=== PATIENT | female | born 1980 | race Caucasian/White ===

== ENCOUNTER 2018-06-23 13:47 | Emergency (ER) | payer MEDICARE, MEDICAID ==
[~2018-06-23] VITALS: Ht 157.5 cm; Wt 101.0 kg
[2018-06-23] MEDS ORDERED: DIVA500T9 PO ×2 (14:32)
[2018-06-23] MEDS ORDERED: ILOP8TAB2 OP (14:32)
[2018-06-23] MEDS ORDERED: ALBU18HF2 INH (14:35)
[2018-06-23 14:55] LABS: CLARITY,URINE CLOUDY (Clear); GLUCOSE, URINE NEGATIVE (Neg); KETONES,URINE 15 mg/dl (Neg); LEUKOCYTE ESTERASE ,URINE NEGATIVE (Neg); NITRITES, URINE POSITIVE (Neg); OCCULT BLOOD,URINE TRACE-INTACT (Neg); PROTEIN,URINE TRACE mg/dl (Neg)
[2018-06-23] MEDS ORDERED: albuterol 2.5 MG/3 ML nebule NEB PRN (15:00)
[2018-06-23 15:01] LABS: UA COLLECTION TYPE CLN CATCH MIDSTREAM; URINE HCG NEGATIVE (NEG)
[2018-06-23 15:03] LABS: COLOR,URINE DARK YELLOW (Yellow)
[2018-06-23 15:05] LABS: BACTERIA,URINE 4+ /HPF (Neg); MUCUS STRANDS MANY /LPF (Neg); RBC,URINE 0-2 /HPF (0-2); SQUAMOUS EPITHELIAL CELL,UR MANY /LPF (FEW)
[2018-06-23 15:20] LABS: BASOPHILS # (AUTO) 0.1 X10'3 (0-0.2); BASOPHILS % (AUTO) 0.6 % (0-1); EOSINOPHILS % (AUTO) 0.5 % (0-6); HEMATOCRIT 37.9 % (35.0-45.0); HEMOGLOBIN 12.8 g/dl (12.0-16.0); LYMPHOCYTES # (AUTO) 2.2 X10'3 (1.1-4.8); LYMPHOCYTES % (AUTO) 21.6 % (21-51); MEAN CORPUSCULAR HEMOGLOBIN 31.6 PG (27.0-31.0); MEAN CORPUSCULAR HGB CONC 33.9 % (33.0-36.5); MEAN CORPUSCULAR VOLUME 93.3 FL (78-98); MONOCYTES # (AUTO) 0.8 X10'3 (0-0.9); NEUTROPHILS % (AUTO) 69.3 % (42-75); PLATELET COUNT 262 X10'3 (140-440); RED BLOOD COUNT 4.06 X10'6 (4.20-5.60); RED CELL DISTRIBUTION WIDTH 13.6 % (11.5-14.5); WHITE BLOOD COUNT 10.1 X10'3 (4.5-11.0)
[2018-06-23 15:38] LABS: ALANINE AMINOTRANSFERASE 23 U/L (12-78); ALBUMIN 3.4 G/DL (3.4-5.0); ALBUMIN/GLOBULIN RATIO 0.9 (1.1-1.5); ALKALINE PHOSPHATASE 105 IU/L (46-116); ANION GAP 8 (8-16); ASPARTATE AMINO TRANSFERASE 18 U/L (10-37); BILIRUBIN,TOTAL 0.4 MG/DL (0.1-1.0); BLOOD UREA NITROGEN 8 MG/DL (7-18); BUN/CREATININE RATIO 8.8 (6.6-38.0); CALCIUM 8.8 MG/DL (8.5-10.1); CHLORIDE 106 MMOL/L (99-107); CREATININE 0.91 MG/DL (0.40-0.90); GLUCOSE 99 MG/DL (70-104); POTASSIUM 3.3 MMOL/L (3.5-5.1); SODIUM 143 MMOL/L (135-145); TOTAL CARBON DIOXIDE 29.3 MMOL/L (24-32); TOTAL PROTEIN 7.2 G/DL (6.4-8.2); eGFR 70 ML/MIN
[2018-06-23 15:48] LABS: ETHANOL < 0.010 GM/DL (0.0-0.010)
[2018-06-23] MEDS ORDERED: olanzapine 10mg tablet PO SCH (16:15)
[2018-06-23] MEDS ORDERED: FANAPT 8 MG PO SCH (21:00)
[2018-06-23] MEDS ORDERED: divalproex sod 250mg ER (24-hour) tablet PO SCH (21:00)
[2018-06-23] MEDS ORDERED: potassium Cl 20 mEq SR tablet PO ONE (23:40)
[2018-06-23 23:53] VITALS: BP 105/75
[2018-06-24] MEDS ORDERED: divalproex sod 250mg ER (24-hour) tablet PO SCH (08:00)
== END 2018-06-24 00:52 ==
LOC: ER 13:48
DX: F20.9 Schizophrenia, unspecified (principal); J45.909 Unspecified asthma, uncomplicated; F32.9 Major depressive disorder, single episode, unspecified; F41.9 Anxiety disorder, unspecified; Z90.49 Acquired absence of other specified parts of digestive tract; Z87.891 Personal history of nicotine dependence; Z88.8 Allergy status to other drugs, medicaments and biological substances; Z79.899 Other long term (current) drug therapy
CPT/HCPCS: 36415; 80053; 80320; 81001; 81025; 84443; 85025; 99285; J3490

== ENCOUNTER 2018-06-23 23:20 | Inpatient (IN) | payer MEDICARE, MEDICAID ==
[~2018-06-23] VITALS: Ht 157.5 cm; Wt 110.0 kg
[~2018-06-23 23:20] MED LIST: ALBU18HF2 INH; BENZ1TAB7 PO; DIVA500T9 PO; FURO20TA4 PO; ILOP8TAB2 OP; OLAN2.5T3 PO; UNABLE TO OBTAIN
[2018-06-24] MEDS ORDERED: acetaminophen 325mg tablet PO PRN ×4 (00:45→08:30)
[2018-06-24] MEDS ORDERED: magnesium hydroxide 30ml (MOM) UD suspension PO PRN ×2 (00:45→08:30)
[2018-06-24] MEDS ORDERED: mag hydrox/Alum hydrox/simeth 30ml oral suspension PO PRN ×2 (00:45→08:30)
[2018-06-24] MEDS ORDERED: albuterol 2.5 MG/3 ML nebule NEB PRN (01:00)
[2018-06-24 01:23] VITALS: BP 120/70
[2018-06-24] MEDS ORDERED: LORazepam 1 MG tablet PO ONE ×2 (03:05→03:45)
[2018-06-24 07:53] LABS: CHOL/HDL RATIO 2.7 (0.00-4.99); CHOLESTEROL 128 MG/DL (0-200); HDL CHOLESTEROL 48 MG/DL (35-60); LDL CHOLESTEROL 65 MG/DL (50-100); TRIGLYCERIDES 63 MG/DL (20-135)
[2018-06-24 08:00] VITALS: BP 139/82
[2018-06-24] MEDS: divalproex sod 250mg ER (24-hour) tablet PO SCH ×2 (08:07→20:43)
[2018-06-24] MEDS: lisinopril 20mg tablet PO SCH (08:30)
[2018-06-24] MEDS ORDERED: HYDROcodone/acetaminophen 5mg/325mg tablet PO PRN (08:30)
[2018-06-24] MEDS ORDERED: HYDROcodone/acetaminophen 10/325mg tab PO PRN (08:30)
[2018-06-24] MEDS ORDERED: bisacodyl 10mg suppository rectal RC PRN (08:30)
[2018-06-24] MEDS ORDERED: metoclopramide 5 mg/ml inj IV PRN (08:30)
[2018-06-24] MEDS ORDERED: ondansetron/PF 4mg/2ml inj IV PRN (08:30)
[2018-06-24] MEDS ORDERED: acetaminophen 650mg rectal suppository RC PRN (08:30)
[2018-06-24] MEDS ORDERED: potassium Cl 20 mEq SR tablet PO PRN ×2 (08:30)
[2018-06-24] MEDS ORDERED: potassium Cl 40MEQ/NS 500ml 500 ML IV PRN ×2 (08:30)
[2018-06-24] MEDS: K and/or MAG REPLACEMENT MC SCH (08:30)
[2018-06-24] MEDS: HYDROchlorothiazide 25mg tablet PO SCH (08:30)
[2018-06-24 08:56] LABS: ALANINE AMINOTRANSFERASE 21 U/L (12-78); ALBUMIN 2.7 G/DL (3.4-5.0); ALBUMIN/GLOBULIN RATIO 0.8 (1.1-1.5); ALKALINE PHOSPHATASE 87 IU/L (46-116); ANION GAP 5 (8-16); ASPARTATE AMINO TRANSFERASE 16 U/L (10-37); BILIRUBIN,TOTAL 0.3 MG/DL (0.1-1.0); BLOOD UREA NITROGEN 8 MG/DL (7-18); CALCIUM 8.2 MG/DL (8.5-10.1); CHLORIDE 108 MMOL/L (99-107); CREATINE KINASE 73 U/L (26-192); CREATININE 0.73 MG/DL (0.40-0.90); GLUCOSE 92 MG/DL (70-104); LIPASE 90 U/L (73-393); MAGNESIUM 1.8 MG/DL (1.5-2.4); POTASSIUM 3.6 MMOL/L (3.5-5.1); SODIUM 141 MMOL/L (135-145); eGFR 90 ML/MIN
[2018-06-24 09:20] LABS: VALPROATE 72 UG/ML (50-100)
[2018-06-24] MEDS: rivaroxaban 20mg tablet PO SCH (12:40)
[2018-06-24 14:03] LABS: PARTIAL THROMBOPLASTIN TIME 28 SECONDS (22-32); PROTHROMBIN TIME 10.6 SECONDS (9.0-12.0)
[2018-06-24] MEDS ORDERED: heparin, porcine 5000 units/ml vial SQ SCH (16:00)
[2018-06-24] MEDS: miconazole nitrate cream 57gm TP SCH (18:05)
[2018-06-24] MEDS: nitrofuran/nitrofuran macrocrysal 100 MG capsule PO SCH (18:11)
[2018-06-24 19:58] VITALS: BP 134/81
[2018-06-24] MEDS: LORazepam 1 MG tablet PO SCH (20:43)
[2018-06-24] MEDS: haloperidol 5mg tablet PO SCH (20:44)
[2018-06-24] MEDS: docusate sod 100mg capsule PO SCH (20:44)
[2018-06-24] MEDS: benztropine 1mg tablet PO SCH (20:44)
[2018-06-24] MEDS ORDERED: temazepam 15mg capsule PO PRN (21:00)
[2018-06-25 08:00] VITALS: BP 134/78
[2018-06-25] MEDS: miconazole nitrate cream 57gm TP SCH (08:00)
[2018-06-25] MEDS: nicotine 21mg patch - 24 hr TD SCH (08:00)
[2018-06-25] MEDS: K and/or MAG REPLACEMENT MC SCH (08:00)
[2018-06-25] MEDS: benztropine 1mg tablet PO SCH ×2 (09:35→20:27)
[2018-06-25] MEDS: HYDROchlorothiazide 25mg tablet PO SCH (09:35)
[2018-06-25] MEDS: docusate sod 100mg capsule PO SCH ×2 (09:35→20:27)
[2018-06-25] MEDS: nitrofuran/nitrofuran macrocrysal 100 MG capsule PO SCH ×2 (09:36→17:33)
[2018-06-25] MEDS: rivaroxaban 20mg tablet PO SCH (09:36)
[2018-06-25] MEDS: haloperidol 5mg tablet PO SCH ×2 (09:36→20:27)
[2018-06-25] MEDS: lisinopril 20mg tablet PO SCH (09:37)
[2018-06-25] MEDS: divalproex sod 250mg ER (24-hour) tablet PO SCH ×2 (09:37→20:27)
[2018-06-25 20:07] VITALS: BP 105/54
[2018-06-25] MEDS: LORazepam 1 MG tablet PO SCH (20:27)
[2018-06-26 08:00] VITALS: BP 105/72
[2018-06-26] MEDS: lisinopril 20mg tablet PO SCH (08:32)
[2018-06-26] MEDS: benztropine 1mg tablet PO SCH ×2 (08:32→21:06)
[2018-06-26] MEDS: LORazepam 1 MG tablet PO PRN (08:33)
[2018-06-26] MEDS: rivaroxaban 20mg tablet PO SCH (08:33)
[2018-06-26] MEDS: docusate sod 100mg capsule PO SCH ×2 (08:33→21:06)
[2018-06-26] MEDS: haloperidol 5mg tablet PO PRN (08:34)
[2018-06-26] MEDS: haloperidol 5mg tablet PO SCH ×2 (08:34→21:06)
[2018-06-26] MEDS: HYDROchlorothiazide 25mg tablet PO SCH (08:34)
[2018-06-26] MEDS: divalproex sod 250mg ER (24-hour) tablet PO SCH ×2 (08:34→21:06)
[2018-06-26] MEDS: nicotine 21mg patch - 24 hr TD SCH (08:35)
[2018-06-26] MEDS: K and/or MAG REPLACEMENT MC SCH (08:55)
[2018-06-26] MEDS: nitrofuran/nitrofuran macrocrysal 100 MG capsule PO SCH ×2 (09:02→17:55)
[2018-06-26] MEDS: miconazole nitrate cream 57gm TP SCH (09:02)
[2018-06-26 19:59] VITALS: BP 115/58
[2018-06-26] MEDS: LORazepam 1 MG tablet PO SCH (21:06)
[2018-06-27] MEDS: divalproex sod 250mg ER (24-hour) tablet PO SCH ×2 (07:51→20:25)
[2018-06-27] MEDS: nitrofuran/nitrofuran macrocrysal 100 MG capsule PO SCH ×2 (07:51→17:38)
[2018-06-27] MEDS: miconazole nitrate cream 57gm TP SCH (07:51)
[2018-06-27] MEDS: docusate sod 100mg capsule PO SCH ×2 (07:51→20:24)
[2018-06-27] MEDS: rivaroxaban 20mg tablet PO SCH (07:51)
[2018-06-27] MEDS: HYDROchlorothiazide 25mg tablet PO SCH (07:51)
[2018-06-27] MEDS: benztropine 1mg tablet PO SCH ×2 (07:52→20:24)
[2018-06-27] MEDS: lisinopril 20mg tablet PO SCH (07:52)
[2018-06-27] MEDS: haloperidol 5mg tablet PO SCH ×2 (07:52→20:25)
[2018-06-27] MEDS: nicotine 21mg patch - 24 hr TD SCH (08:00)
[2018-06-27 08:51] VITALS: BP 131/67
[2018-06-27 19:24] VITALS: BP 116/90
[2018-06-27] MEDS: FANAPT 8 MG PO SCH (20:25)
[2018-06-27] MEDS: LORazepam 1 MG tablet PO SCH (20:25)
[2018-06-28] MEDS: nicotine 21mg patch - 24 hr TD SCH (08:00)
[2018-06-28] MEDS: haloperidol 5mg tablet PO SCH ×2 (08:33→20:39)
[2018-06-28] MEDS: nitrofuran/nitrofuran macrocrysal 100 MG capsule PO SCH ×2 (08:34→17:46)
[2018-06-28] MEDS: divalproex sod 250mg ER (24-hour) tablet PO SCH ×2 (08:34→20:41)
[2018-06-28] MEDS: docusate sod 100mg capsule PO SCH ×2 (08:34→20:39)
[2018-06-28] MEDS: benztropine 1mg tablet PO SCH ×2 (08:34→20:39)
[2018-06-28] MEDS: HYDROchlorothiazide 25mg tablet PO SCH (08:35)
[2018-06-28] MEDS: lisinopril 20mg tablet PO SCH (08:35)
[2018-06-28 08:36] VITALS: BP 121/81
[2018-06-28] MEDS: miconazole nitrate cream 57gm TP SCH (08:36)
[2018-06-28] MEDS: rivaroxaban 20mg tablet PO SCH (08:36)
[2018-06-28 20:00] VITALS: BP 127/70
[2018-06-28] MEDS: LORazepam 1 MG tablet PO SCH (20:40)
[2018-06-28] MEDS: FANAPT 8 MG PO SCH (20:41)
[2018-06-29] MEDS: docusate sod 100mg capsule PO SCH ×2 (07:58→20:29)
[2018-06-29] MEDS: nitrofuran/nitrofuran macrocrysal 100 MG capsule PO SCH ×2 (07:58→17:58)
[2018-06-29] MEDS: lisinopril 20mg tablet PO SCH (07:58)
[2018-06-29] MEDS: benztropine 1mg tablet PO SCH ×2 (07:58→20:29)
[2018-06-29] MEDS: rivaroxaban 20mg tablet PO SCH (07:58)
[2018-06-29] MEDS: HYDROchlorothiazide 25mg tablet PO SCH (07:58)
[2018-06-29] MEDS: haloperidol 5mg tablet PO SCH ×2 (07:59→20:29)
[2018-06-29] MEDS: divalproex sod 250mg ER (24-hour) tablet PO SCH ×2 (07:59→20:30)
[2018-06-29] MEDS: miconazole nitrate cream 57gm TP SCH (08:00)
[2018-06-29] MEDS: nicotine 21mg patch - 24 hr TD SCH (08:00)
[2018-06-29 08:35] VITALS: BP 176/100
[2018-06-29 19:00] VITALS: BP 118/71
[2018-06-29] MEDS: LORazepam 1 MG tablet PO SCH (20:29)
[2018-06-29] MEDS: FANAPT 8 MG PO SCH (20:31)
[2018-06-30 08:00] VITALS: BP 127/70
[2018-06-30] MEDS: miconazole nitrate cream 57gm TP SCH (08:00)
[2018-06-30] MEDS: nicotine 21mg patch - 24 hr TD SCH (08:00)
[2018-06-30] MEDS: nitrofuran/nitrofuran macrocrysal 100 MG capsule PO SCH ×2 (08:20→17:48)
[2018-06-30] MEDS: docusate sod 100mg capsule PO SCH ×2 (08:20→20:54)
[2018-06-30] MEDS: rivaroxaban 20mg tablet PO SCH (08:20)
[2018-06-30] MEDS: lisinopril 20mg tablet PO SCH (08:20)
[2018-06-30] MEDS: benztropine 1mg tablet PO SCH ×2 (08:21→20:53)
[2018-06-30] MEDS: divalproex sod 250mg ER (24-hour) tablet PO SCH ×2 (08:21→20:54)
[2018-06-30] MEDS: haloperidol 5mg tablet PO SCH ×2 (08:22→20:54)
[2018-06-30] MEDS: HYDROchlorothiazide 25mg tablet PO SCH (08:22)
[2018-06-30 20:00] VITALS: BP 104/53
[2018-06-30] MEDS: FANAPT 8 MG PO SCH (20:53)
[2018-06-30] MEDS: LORazepam 1 MG tablet PO SCH (20:54)
[2018-06-30] MEDS ORDERED: TYPE IN GENERIC & BRAND NAME OF PATIENT MED STRENGTH & FORM PO SCH (21:00)
[2018-07-01 08:00] VITALS: BP 98/49
[2018-07-01] MEDS: rivaroxaban 20mg tablet PO SCH ×2 (08:00→08:42)
[2018-07-01] MEDS: lisinopril 20mg tablet PO SCH (08:00)
[2018-07-01] MEDS: HYDROchlorothiazide 25mg tablet PO SCH (08:00)
[2018-07-01] MEDS: miconazole nitrate cream 57gm TP SCH (08:00)
[2018-07-01] MEDS: divalproex sod 250mg ER (24-hour) tablet PO SCH ×3 (08:00→20:57)
[2018-07-01] MEDS: haloperidol 5mg tablet PO SCH ×2 (08:41→20:57)
[2018-07-01] MEDS: docusate sod 100mg capsule PO SCH ×2 (08:42→20:57)
[2018-07-01] MEDS: benztropine 1mg tablet PO SCH ×2 (08:42→20:57)
[2018-07-01] MEDS: nitrofuran/nitrofuran macrocrysal 100 MG capsule PO SCH ×2 (08:42→20:58)
[2018-07-01 20:32] VITALS: BP 150/93
[2018-07-01] MEDS: LORazepam 1 MG tablet PO SCH (20:57)
[2018-07-01] MEDS: FANAPT 8 MG PO SCH (20:57)
[2018-07-02] MEDS: LORazepam 1 MG tablet PO PRN (01:26)
[2018-07-02] MEDS: haloperidol 5mg tablet PO PRN (01:26)
[2018-07-02 08:00] VITALS: BP 118/69
[2018-07-02] MEDS: miconazole nitrate cream 57gm TP SCH (08:00)
[2018-07-02] MEDS: lisinopril 10 MG tablet PO SCH ×2 (08:00→08:13)
[2018-07-02] MEDS: HYDROchlorothiazide 25mg tablet PO SCH (08:13)
[2018-07-02] MEDS: docusate sod 100mg capsule PO SCH ×2 (08:13→20:52)
[2018-07-02] MEDS: benztropine 1mg tablet PO SCH ×2 (08:13→20:52)
[2018-07-02] MEDS: haloperidol 5mg tablet PO SCH (08:13)
[2018-07-02] MEDS: rivaroxaban 20mg tablet PO SCH (08:14)
[2018-07-02] MEDS: nitrofuran/nitrofuran macrocrysal 100 MG capsule PO SCH ×2 (08:14→17:48)
[2018-07-02] MEDS: divalproex sod 250mg ER (24-hour) tablet PO SCH ×2 (08:14→20:52)
[2018-07-02 19:46] VITALS: BP 115/72
[2018-07-02] MEDS ORDERED: haloperidol 5mg tablet PO SCH (20:00)
[2018-07-02] MEDS: FANAPT 8 MG PO SCH (20:52)
[2018-07-02] MEDS: LORazepam 1 MG tablet PO SCH (20:52)
[2018-07-03 08:00] VITALS: BP 130/85
[2018-07-03] MEDS: lisinopril 10 MG tablet PO SCH ×2 (08:00→08:41)
[2018-07-03] MEDS ORDERED: TYPE IN GENERIC & BRAND NAME OF PATIENT MED STRENGTH & FORM PO SCH (08:00)
[2018-07-03] MEDS: miconazole nitrate cream 57gm TP SCH (08:00)
[2018-07-03] MEDS: divalproex sod 250mg ER (24-hour) tablet PO SCH (08:40)
[2018-07-03] MEDS: docusate sod 100mg capsule PO SCH (08:41)
[2018-07-03] MEDS: rivaroxaban 20mg tablet PO SCH (08:41)
[2018-07-03] MEDS: nitrofuran/nitrofuran macrocrysal 100 MG capsule PO SCH (08:41)
[2018-07-03] MEDS: HYDROchlorothiazide 25mg tablet PO SCH ×2 (08:41→09:01)
[2018-07-03] MEDS: benztropine 1mg tablet PO SCH (08:42)
[2018-07-03] MEDS ORDERED: HCTZ25T PO (09:48)
[2018-07-03] MEDS ORDERED: ILOP4TAB2 PO (09:48)
[2018-07-03] MEDS ORDERED: RIVA20TA PO (09:48)
[2018-07-03] MEDS ORDERED: DIVA-52 PO ×2 (09:48)
[2018-07-03] MEDS ORDERED: ATI1T PO (09:48)
[2018-07-03] MEDS ORDERED: LISI10TA4 PO (09:48)
[2018-07-03] MEDS ORDERED: ILOP8TAB2 PO (09:48)
== END 2018-07-03 13:00 | disposition home or self-care (01) | DRG 885 ==
LOC: ADULT MH 23:20
PROVIDERS: ADMIT Psychiatry & Neurology Psychiatry; ATTEND Psychiatry & Neurology Psychiatry
DX: F29 Unspecified psychosis not due to a substance or known physiological condition (principal); N39.0 Urinary tract infection, site not specified; Z68.41 Body mass index [BMI] 40.0-44.9, adult; F20.5 Residual schizophrenia; E87.6 Hypokalemia; E66.01 Morbid (severe) obesity due to excess calories; F84.0 Autistic disorder; I10 Essential (primary) hypertension; I48.91 Unspecified atrial fibrillation; J45.909 Unspecified asthma, uncomplicated; K21.9 Gastro-esophageal reflux disease without esophagitis; M41.9 Scoliosis, unspecified; Z79.899 Other long term (current) drug therapy; Z88.8 Allergy status to other drugs, medicaments and biological substances; Z72.0 Tobacco use
CPT/HCPCS: 36415; 80053; 80061; 80164; 82550; 83036; 83690; 83735; 85610; 85730; 87070; 93306; J1644

== ENCOUNTER → 2018-07-18 | Emergency (ER) | payer MEDICARE, MEDICAID ==
[~2018-07-18] VITALS: Ht 571.8 cm; Wt 135.0 kg
[~2018-07-18] MED LIST changes: +ATI1T PO; +DIVA-52 PO; +DIVA-76 PO; -DIVA500T9 PO; +FURO40TA4 PO; +HCTZ25T PO; +HYDR25TA4 PO; +ILOP2TAB2 PO; +ILOP4TAB2 PO; -ILOP8TAB2 OP; +ILOP8TAB2 PO; +LISI-600 PO; +LISI10TA4 PO; +LORA1TAB PO; +LORazepam 1 MG tablet PO ONE; +LORazepam 2 mg/ml vial IM ONE; +RIVA20TA PO; +albuterol 2.5 MG/3 ML nebule NEB PRN; +fluconazole 100mg tablet PO ONE; +haloperidol lactate 5mg/ml inj IM ONE
[2018-07-18 17:52] LABS: BASOPHILS # (AUTO) 0.1 X10'3 (0-0.2); EOSINOPHILS # (AUTO) 0.1 X10'3 (0-0.9); EOSINOPHILS % (AUTO) 0.5 % (0-6); HEMATOCRIT 42.9 % (35.0-45.0); HEMOGLOBIN 14.4 g/dl (12.0-16.0); LYMPHOCYTES # (AUTO) 3.1 X10'3 (1.1-4.8); LYMPHOCYTES % (AUTO) 26.4 % (21-51); MEAN CORPUSCULAR HEMOGLOBIN 31.8 PG (27.0-31.0); MEAN CORPUSCULAR HGB CONC 33.4 % (33.0-36.5); MEAN CORPUSCULAR VOLUME 95.1 FL (78-98); MEAN PLATELET VOLUME 9.8 FL (7.4-10.4); MONOCYTES # (AUTO) 0.6 X10'3 (0-0.9); MONOCYTES % (AUTO) 5.4 % (2-12); NEUTROPHILS # (AUTO) 7.7 X10'3 (1.8-7.7); NEUTROPHILS % (AUTO) 66.7 % (42-75); PLATELET COUNT 255 X10'3 (140-440); RED BLOOD COUNT 4.51 X10'6 (4.20-5.60); RED CELL DISTRIBUTION WIDTH 12.5 % (11.5-14.5); WHITE BLOOD COUNT 11.6 X10'3 (4.5-11.0)
[2018-07-18 17:59] LABS: ALANINE AMINOTRANSFERASE 19 U/L (12-78); ALBUMIN 3.7 G/DL (3.4-5.0); ALBUMIN/GLOBULIN RATIO 0.9 (1.1-1.5); ALKALINE PHOSPHATASE 125 IU/L (46-116); ANION GAP 12 (8-16); ASPARTATE AMINO TRANSFERASE 19 U/L (10-37); BILIRUBIN,TOTAL 0.6 MG/DL (0.1-1.0); BLOOD UREA NITROGEN 10 MG/DL (7-18); BUN/CREATININE RATIO 12.5 (6.6-38.0); CHLORIDE 103 MMOL/L (99-107); GLUCOSE 95 MG/DL (70-104); POTASSIUM 3.4 MMOL/L (3.5-5.1); SODIUM 138 MMOL/L (135-145); TOTAL PROTEIN 7.8 G/DL (6.4-8.2); eGFR 81 ML/MIN
[2018-07-18 18:07] LABS: ETHANOL < 0.010 GM/DL (0.0-0.010)
[2018-07-18 18:30] LABS: URINE HCG NEGATIVE (NEG)
[2018-07-18 18:33] LABS: CLARITY,URINE CLOUDY (Clear); COLOR,URINE YELLOW (Yellow); GLUCOSE, URINE NEGATIVE (Neg); KETONES,URINE NEGATIVE (Neg); LEUKOCYTE ESTERASE ,URINE NEGATIVE (Neg); NITRITES, URINE NEGATIVE (Neg); OCCULT BLOOD,URINE NEGATIVE (Neg); PH,URINE 5.5 (4.8-8.0); PROTEIN,URINE NEGATIVE (Neg); UROBILINOGEN,URINE 0.2 E.U/dL (0.2-1.0)
[2018-07-18 18:39] LABS: UA COLLECTION TYPE CLN CATCH MIDSTREAM
[2018-07-18 18:40] LABS: BACTERIA,URINE FEW /HPF (Neg); MUCUS STRANDS MANY /LPF (Neg); RBC,URINE NONE SEEN /HPF (0-2); SQUAMOUS EPITHELIAL CELL,UR MANY /LPF (FEW); WBC,URINE 0-4 /HPF (0-4)
[2018-07-18 18:41] LABS: URINE AMPHETAMINE SCREEN NEGATIVE (Neg); URINE BARBITUATE SCREEN NEGATIVE (Neg); URINE BENZODIAZEPINES SCREEN NEGATIVE (Neg); URINE CANNABINOID SCREEN NEGATIVE (Neg); URINE COCAINE SCREEN NEGATIVE (Neg); URINE METHADONE SCREEN NEGATIVE (Neg); URINE OPIATE SCREEN NEGATIVE (Neg); URINE PHENCYCLIDINE SCREEN NEGATIVE (Neg)
[2018-07-18] MEDS: quetiapine 100mg tablet PO SCH (21:45)
[2018-07-18] MEDS: nystatin 15 GM powder TP SCH (21:49)
[2018-07-19] MEDS: nystatin 15 GM powder TP SCH ×3 (08:54→20:45)
[2018-07-19] MEDS: quetiapine 100mg tablet PO SCH (20:45)
[2018-07-20] MEDS: nystatin 15 GM powder TP SCH ×3 (08:00→20:07)
[2018-07-20] MEDS: divalproex sodium 500mg tablet.DR PO SCH (20:06)
[2018-07-20] MEDS: quetiapine 100mg tablet PO SCH (20:06)
[2018-07-20] MEDS: benztropine 1mg tablet PO SCH (20:06)
[2018-07-21] MEDS: nystatin 15 GM powder TP SCH ×4 (08:00→20:33)
[2018-07-21] MEDS: benztropine 1mg tablet PO SCH ×2 (09:39→20:00)
[2018-07-21] MEDS: furosemide 40mg tablet PO SCH (09:39)
[2018-07-21] MEDS: rivaroxaban 20mg tablet PO SCH (09:39)
[2018-07-21] MEDS: lisinopril 10 MG tablet PO SCH (09:39)
[2018-07-21] MEDS: divalproex sodium 500mg tablet.DR PO SCH ×4 (09:39→21:00)
[2018-07-21] MEDS: quetiapine 100mg tablet PO SCH ×3 (20:14→21:00)
[2018-07-22] MEDS: lisinopril 10 MG tablet PO SCH ×2 (08:00→08:35)
[2018-07-22] MEDS: rivaroxaban 20mg tablet PO SCH (08:35)
[2018-07-22] MEDS: benztropine 1mg tablet PO SCH ×2 (08:35→20:21)
[2018-07-22] MEDS: furosemide 40mg tablet PO SCH (08:35)
[2018-07-22] MEDS: divalproex sodium 500mg tablet.DR PO SCH ×2 (08:37→20:21)
[2018-07-22] MEDS: nystatin 15 GM powder TP SCH ×2 (13:27→20:24)
[2018-07-22 17:46] VITALS: BP 109/68
[2018-07-22] MEDS: quetiapine 100mg tablet PO SCH (20:21)
== END ==
LOC: ER 16:39
DX: F29 Unspecified psychosis not due to a substance or known physiological condition (principal); F31.9 Bipolar disorder, unspecified; F25.9 Schizoaffective disorder, unspecified; B37.3 Candidiasis of vulva and vagina; F41.9 Anxiety disorder, unspecified; J45.909 Unspecified asthma, uncomplicated; Z90.49 Acquired absence of other specified parts of digestive tract; Z88.8 Allergy status to other drugs, medicaments and biological substances; Z87.440 Personal history of urinary (tract) infections
CPT/HCPCS: 36415; 80053; 80305; 80320; 81001; 81025; 84443; 85025; 96372; 99285; J1630; J2060

== ENCOUNTER 2018-09-07 15:55 | Emergency (ER) | payer MEDICARE, MEDICAID ==
[~2018-09-07] VITALS: Ht 167.6 cm; Wt 109.0 kg
[~2018-09-07 15:55] MED LIST changes: -ATI1T PO; -DIVA-52 PO; -FURO20TA4 PO; -HCTZ25T PO; -ILOP4TAB2 PO; -ILOP8TAB2 PO; -LISI10TA4 PO; -LORazepam 1 MG tablet PO ONE; -LORazepam 2 mg/ml vial IM ONE; -OLAN2.5T3 PO; -UNABLE TO OBTAIN; -albuterol 2.5 MG/3 ML nebule NEB PRN; -fluconazole 100mg tablet PO ONE; -haloperidol lactate 5mg/ml inj IM ONE
[2018-09-07] MEDS ORDERED: LORazepam 2 mg/ml vial IM ONE (17:10)
[2018-09-07] MEDS ORDERED: haloperidol lactate 5mg/ml inj IM ONE (17:10)
[2018-09-07] MEDS ORDERED: benztropine 1 mg/ml 2ml ampule IM ONE (17:10)
[2018-09-07 17:28] LABS: BASOPHILS # (AUTO) 0.1 X10'3 (0-0.2); BASOPHILS % (AUTO) 1.1 % (0-1); EOSINOPHILS # (AUTO) 0.1 X10'3 (0-0.9); EOSINOPHILS % (AUTO) 0.6 % (0-6); HEMATOCRIT 45.2 % (35.0-45.0); HEMOGLOBIN 15.3 g/dl (12.0-16.0); LYMPHOCYTES # (AUTO) 2.7 X10'3 (1.1-4.8); LYMPHOCYTES % (AUTO) 32.1 % (21-51); MEAN CORPUSCULAR HEMOGLOBIN 31.8 PG (27.0-31.0); MEAN CORPUSCULAR HGB CONC 33.8 % (33.0-36.5); MEAN CORPUSCULAR VOLUME 94.1 FL (78-98); MEAN PLATELET VOLUME 10.1 FL (7.4-10.4); MONOCYTES # (AUTO) 0.5 X10'3 (0-0.9); MONOCYTES % (AUTO) 6.3 % (2-12); NEUTROPHILS # (AUTO) 5.2 X10'3 (1.8-7.7); NEUTROPHILS % (AUTO) 59.9 % (42-75); PLATELET COUNT 264 X10'3 (140-440); WHITE BLOOD COUNT 8.6 X10'3 (4.5-11.0)
[2018-09-07 17:49] LABS: ALANINE AMINOTRANSFERASE 16 U/L (12-78); ALBUMIN 3.1 G/DL (3.4-5.0); ALBUMIN/GLOBULIN RATIO 0.7 (1.1-1.5); ALKALINE PHOSPHATASE 130 IU/L (46-116); ANION GAP 9 (8-16); BILIRUBIN,TOTAL 0.3 MG/DL (0.1-1.0); BLOOD UREA NITROGEN 10 MG/DL (7-18); BUN/CREATININE RATIO 12.5 (6.6-38.0); CALCIUM 8.9 MG/DL (8.5-10.1); CHLORIDE 108 MMOL/L (99-107); GLUCOSE 92 MG/DL (70-104); SODIUM 143 MMOL/L (135-145); TOTAL CARBON DIOXIDE 25.7 MMOL/L (24-32); TOTAL PROTEIN 7.5 G/DL (6.4-8.2); eGFR 81 ML/MIN
[2018-09-07 17:50] LABS: ASPARTATE AMINO TRANSFERASE 19 U/L (10-37); POTASSIUM 4.3 MMOL/L (3.5-5.1)
[2018-09-07 17:59] LABS: ETHANOL < 0.010 GM/DL (0.0-0.010)
[2018-09-07 18:09] LABS: URINE HCG NEGATIVE (NEG)
[2018-09-07 18:22] LABS: URINE AMPHETAMINE SCREEN NEGATIVE (Neg); URINE BARBITUATE SCREEN NEGATIVE (Neg); URINE BENZODIAZEPINES SCREEN NEGATIVE (Neg); URINE CANNABINOID SCREEN NEGATIVE (Neg); URINE COCAINE SCREEN NEGATIVE (Neg); URINE METHADONE SCREEN NEGATIVE (Neg); URINE OPIATE SCREEN NEGATIVE (Neg); URINE PHENCYCLIDINE SCREEN NEGATIVE (Neg)
[2018-09-08] MEDS ORDERED: LORazepam 1 MG tablet PO ONE (05:15)
[2018-09-08] MEDS ORDERED: LORazepam 2 mg/ml vial IM ONE (05:40)
[2018-09-08] MEDS ORDERED: ziprasidone IM 20mg inj **IM only IM ONE (05:50)
[2018-09-08] MEDS ORDERED: diphenhydrAMINE 50 mg/ml inj IM ONE (06:20)
[2018-09-08] MEDS ORDERED: haloperidol lactate 5mg/ml inj IM ONE (06:20)
[2018-09-08] MEDS ORDERED: divalproex sodium 500mg tablet.DR PO ONE (11:55)
[2018-09-08] MEDS ORDERED: divalproex sodium 500mg tablet.DR PO SCH (11:55)
[2018-09-09] MEDS: divalproex sodium 500mg tablet.DR PO SCH (08:33)
[2018-09-09] MEDS: LORazepam 1 MG tablet PO PRN (08:33)
[2018-09-09 19:08] LABS: COLOR,URINE YELLOW (Yellow); GLUCOSE, URINE NEGATIVE (Neg); KETONES,URINE TRACE mg/dl (Neg); LEUKOCYTE ESTERASE ,URINE TRACE (Neg); NITRITES, URINE NEGATIVE (Neg); OCCULT BLOOD,URINE NEGATIVE (Neg); PH,URINE 6.5 (4.8-8.0); PROTEIN,URINE NEGATIVE (Neg); UROBILINOGEN,URINE 0.2 E.U/dL (0.2-1.0)
[2018-09-09 19:25] LABS: CLARITY,URINE SLIGHTLY CLOUDY (Clear); UA COLLECTION TYPE NON-SPECIFIED
[2018-09-09 19:26] LABS: BACTERIA,URINE FEW /HPF (Neg); RBC,URINE 0-2 /HPF (0-2); SQUAMOUS EPITHELIAL CELL,UR MODERATE /LPF (FEW)
[2018-09-10] MEDS: divalproex sodium 500mg tablet.DR PO SCH ×3 (08:00→20:40)
[2018-09-10] MEDS: benztropine 1mg tablet PO SCH ×2 (08:07→20:40)
[2018-09-10] MEDS: ILOPERIDONE 4 MG PO SCH (08:08)
[2018-09-10] MEDS: ILOPERIDONE 8 MG PO SCH (20:40)
[2018-09-10] MEDS: LORazepam 1 MG tablet PO PRN (22:42)
[2018-09-11] MEDS ORDERED: ziprasidone 20mg capsule PO PRN (03:00)
[2018-09-11] MEDS ORDERED: ziprasidone 20mg capsule PO ONE (03:05)
[2018-09-11] MEDS ORDERED: acetaminophen 325mg tablet PO ONE (03:05)
[2018-09-11] MEDS: ILOPERIDONE 4 MG PO SCH (09:34)
[2018-09-11] MEDS: divalproex sodium 500mg tablet.DR PO SCH ×3 (09:34→21:00)
[2018-09-11] MEDS: benztropine 1mg tablet PO SCH ×3 (09:35→20:54)
[2018-09-11] MEDS ORDERED: PALI234D IM (16:55)
[2018-09-11] MEDS ORDERED: OLAN5TAB5 PO (16:55)
[2018-09-11] MEDS: olanzapine 10mg tablet PO SCH ×2 (20:55→20:59)
[2018-09-11] MEDS: ILOPERIDONE 8 MG PO SCH ×2 (20:59→21:58)
[2018-09-12] MEDS ORDERED: LORazepam 1 MG tablet PO PRN (07:45)
[2018-09-12] MEDS ORDERED: ziprasidone 20mg capsule PO SCH (08:00)
[2018-09-12] MEDS: divalproex sodium 500mg tablet.DR PO SCH (08:23)
[2018-09-12] MEDS: ILOPERIDONE 4 MG PO SCH (08:23)
[2018-09-12] MEDS: olanzapine 10mg tablet PO SCH ×2 (08:23→13:21)
[2018-09-12] MEDS: benztropine 1mg tablet PO SCH (08:23)
[2018-09-12 17:29] VITALS: BP 119/71
== END 2018-09-12 17:26 ==
LOC: ER 15:56
DX: F25.9 Schizoaffective disorder, unspecified (principal); R10.30 Lower abdominal pain, unspecified; M54.5 Low back pain; M79.601 Pain in right arm; F41.9 Anxiety disorder, unspecified; F32.9 Major depressive disorder, single episode, unspecified; J45.909 Unspecified asthma, uncomplicated; Z90.49 Acquired absence of other specified parts of digestive tract; Z88.8 Allergy status to other drugs, medicaments and biological substances
CPT/HCPCS: 36415; 80053; 80164; 80305; 80320; 81001; 81025; 84443; 85025; 96372; 99285; J0515; J1200; J1630; J2060; J3486; J3490

== ENCOUNTER 2019-05-02 23:01 | Emergency (ER) | payer MEDICARE, MEDICAID ==
[~2019-05-02] VITALS: Ht 167.6 cm; Wt 109.0 kg
[~2019-05-02 23:01] MED LIST changes: -ALBU18HF2 INH; -FURO40TA4 PO; -HYDR25TA4 PO; -LISI-600 PO; -LORA1TAB PO; +OLAN5TAB5 PO; +PALI234D IM; -RIVA20TA PO
[2019-05-02] MEDS ORDERED: OLANZapine **IM** 10 mg inj. IM ONE (23:50)
[2019-05-03 00:07] LABS: BASOPHILS # (AUTO) 0.1 X10'3 (0-0.2); BASOPHILS % (AUTO) 0.4 % (0-1); EOSINOPHILS % (AUTO) 0.1 % (0-6); HEMATOCRIT 43.9 % (35.0-45.0); HEMOGLOBIN 14.5 g/dl (12.0-16.0); LYMPHOCYTES # (AUTO) 2.6 X10'3 (1.1-4.8); MEAN CORPUSCULAR HEMOGLOBIN 30.8 PG (27.0-31.0); MEAN CORPUSCULAR HGB CONC 33.1 g/dL (33.0-36.5); MEAN CORPUSCULAR VOLUME 92.8 FL (78-98); MEAN PLATELET VOLUME 10.4 FL (7.4-10.4); MONOCYTES % (AUTO) 6.7 % (2-12); NEUTROPHILS # (AUTO) 11.5 X10'3 (1.8-7.7); NEUTROPHILS % (AUTO) 75.8 % (42-75); PLATELET COUNT 294 X10'3 (140-440); RED BLOOD COUNT 4.73 X10'6 (4.20-5.60); RED CELL DISTRIBUTION WIDTH 13.1 % (11.5-14.5); WHITE BLOOD COUNT 15.1 X10'3 (4.5-11.0)
[2019-05-03 00:07] LABS: URINE HCG NEGATIVE (NEG)
[2019-05-03 00:21] LABS: ALANINE AMINOTRANSFERASE 24 U/L (12-78); ALBUMIN 3.5 G/DL (3.4-5.0); ALBUMIN/GLOBULIN RATIO 0.9 (1.1-1.5); ALKALINE PHOSPHATASE 147 IU/L (46-116); ANION GAP 7 (8-16); ASPARTATE AMINO TRANSFERASE 14 U/L (10-37); BILIRUBIN,TOTAL 0.2 MG/DL (0.1-1.0); BLOOD UREA NITROGEN 10 MG/DL (7-18); BUN/CREATININE RATIO 12.5 (6.6-38.0); CALCIUM 9.4 MG/DL (8.5-10.1); CHLORIDE 107 MMOL/L (99-107); GLUCOSE 111 MG/DL (70-104); POTASSIUM 3.3 MMOL/L (3.5-5.1); SODIUM 141 MMOL/L (135-145); TOTAL CARBON DIOXIDE 27.4 MMOL/L (24-32); TOTAL PROTEIN 7.5 G/DL (6.4-8.2); eGFR 81 ML/MIN
[2019-05-03 00:21] LABS: URINE AMPHETAMINE SCREEN NEGATIVE (Neg); URINE BARBITUATE SCREEN NEGATIVE (Neg); URINE BENZODIAZEPINES SCREEN NEGATIVE (Neg); URINE CANNABINOID SCREEN NEGATIVE (Neg); URINE COCAINE SCREEN NEGATIVE (Neg); URINE METHADONE SCREEN NEGATIVE (Neg); URINE OPIATE SCREEN NEGATIVE (Neg); URINE PHENCYCLIDINE SCREEN NEGATIVE (Neg)
--- NOTE | 2019-05-03 00:22 | NUR ---
This patient is awake, oriented to person, place, and time. At times she stares away from this short story writer as if she see's someone there. The patient is labile, at times angry. Patient accepts IM Zyprexa 10 mg. She is calming some now and is laying down supine with knees flexed. She is in direct observation from the nursing station. Q14 minute rounding is in effect for patient safety. The patient has been assured that she is in a safe place.
[2019-05-03 00:30] LABS: ETHANOL < 0.010 GM/DL (0.0-0.010)
[2019-05-03 00:33] LABS: ACETAMINOPHEN < 2.0 UG/ML (10-30)
[2019-05-03] MEDS ORDERED: LORazepam 2 mg/ml vial IM ONE (01:45)
--- NOTE | 2019-05-03 01:50 | NUR ---
Patient is combative and yelling about her baby in her stomach. Orders received for Ativan 2 mg IM.
--- NOTE | 2019-05-03 02:08 | NUR ---
Ativan given IM. Patient pulled away after Ativan was administered. Patient is calming a little. She remains labile.
--- NOTE | 2019-05-03 03:43 | NUR ---
This patient is now sleeping quietly.
[2019-05-03] MEDS ORDERED: OXCA300T16 PO (04:18)
[2019-05-03] MEDS ORDERED: BREX2TAB PO ×2 (04:18→04:24)
--- NOTE | 2019-05-03 05:38 | NUR ---
pts mother Margaux called when pt was sleeping. Wants to speak with [facility] today. Pt mother would like to be informed reguarding pts treatment. Home number: [phone] Cellphone: [phone]
--- NOTE | 2019-05-03 06:52 | NUR ---
Patient sleeping on left side. No distress observed. Continue to monitor.
[2019-05-03] MEDS ORDERED: oxcarbazepine 150mg tablet PO SCH ×3 (08:00→21:00)
--- NOTE | 2019-05-03 08:20 | NUR ---
Patient awake and denies suicidal ideation and homicidal ideation. Patient wants to go home. Patient is saying bizarre statements but does appear to be a danger to herself or others at this time. Patient is pending [facility] eval of [id number]. continue to monitor.
--- NOTE | 2019-05-03 10:18 | NUR ---
[facility] speaking with patient and mother.
[2019-05-03 10:58] VITALS: BP 130/89
[2019-05-03] MEDS ORDERED: BREXPIPRAZOLE 2 MG TAB PO SCH (21:00)
== END 2019-05-03 11:03 ==
LOC: ER 23:02
DX: F22 Delusional disorders (principal); R45.6 Violent behavior; J45.909 Unspecified asthma, uncomplicated; F32.9 Major depressive disorder, single episode, unspecified; F20.9 Schizophrenia, unspecified; Z90.49 Acquired absence of other specified parts of digestive tract; Z88.8 Allergy status to other drugs, medicaments and biological substances; Z79.899 Other long term (current) drug therapy
CPT/HCPCS: 36415; 80053; 80305; 80320; 80329; 81025; 84443; 85025; 96372; 99285; J2060

== ENCOUNTER 2019-05-08 14:47 | Emergency (ER) | payer MEDICARE, MEDICAID ==
[~2019-05-08] VITALS: Ht 162.6 cm; Wt 100.0 kg
[~2019-05-08 14:47] MED LIST changes: -BENZ1TAB7 PO; +BREX2TAB PO; -DIVA-76 PO; -ILOP2TAB2 PO; -OLAN5TAB5 PO; +OXCA300T16 PO; -PALI234D IM
[2019-05-08] MEDS ORDERED: OLANZapine **IM** 10 mg inj. IM ONE (15:25)
[2019-05-08 15:50] LABS: BASOPHILS % (AUTO) 0.4 % (0-1); EOSINOPHILS # (AUTO) 0.1 X10'3 (0-0.9); EOSINOPHILS % (AUTO) 0.9 % (0-6); HEMOGLOBIN 13.2 g/dl (12.0-16.0); LYMPHOCYTES # (AUTO) 2.8 X10'3 (1.1-4.8); LYMPHOCYTES % (AUTO) 26.8 % (21-51); MEAN CORPUSCULAR HEMOGLOBIN 30.5 PG (27.0-31.0); MEAN CORPUSCULAR VOLUME 92.3 FL (78-98); MEAN PLATELET VOLUME 9.9 FL (7.4-10.4); MONOCYTES # (AUTO) 0.9 X10'3 (0-0.9); NEUTROPHILS # (AUTO) 6.6 X10'3 (1.8-7.7); NEUTROPHILS % (AUTO) 62.9 % (42-75); PLATELET COUNT 300 X10'3 (140-440); RED BLOOD COUNT 4.33 X10'6 (4.20-5.60); RED CELL DISTRIBUTION WIDTH 13.1 % (11.5-14.5); WHITE BLOOD COUNT 10.5 X10'3 (4.5-11.0)
[2019-05-08 15:56] LABS: URINE HCG NEGATIVE (NEG)
[2019-05-08 16:00] LABS: ALANINE AMINOTRANSFERASE 27 U/L (12-78); ALBUMIN 3.3 G/DL (3.4-5.0); ALBUMIN/GLOBULIN RATIO 0.9 (1.1-1.5); ALKALINE PHOSPHATASE 150 IU/L (46-116); ANION GAP 9 (8-16); ASPARTATE AMINO TRANSFERASE 24 U/L (10-37); BILIRUBIN,TOTAL 0.2 MG/DL (0.1-1.0); BLOOD UREA NITROGEN 5 MG/DL (7-18); BUN/CREATININE RATIO 7.7 (6.6-38.0); CALCIUM 8.7 MG/DL (8.5-10.1); CHLORIDE 106 MMOL/L (99-107); CREATININE 0.65 MG/DL (0.40-0.90); ETHANOL < 0.010 GM/DL (0.0-0.010); GLUCOSE 100 MG/DL (70-104); POTASSIUM 3.7 MMOL/L (3.5-5.1); SODIUM 138 MMOL/L (135-145); TOTAL CARBON DIOXIDE 23.4 MMOL/L (24-32); TOTAL PROTEIN 7.1 G/DL (6.4-8.2); eGFR > 90 ML/MIN
[2019-05-08 16:04] LABS: URINE AMPHETAMINE SCREEN NEGATIVE (Neg); URINE BARBITUATE SCREEN NEGATIVE (Neg); URINE BENZODIAZEPINES SCREEN NEGATIVE (Neg); URINE CANNABINOID SCREEN NEGATIVE (Neg); URINE COCAINE SCREEN NEGATIVE (Neg); URINE METHADONE SCREEN NEGATIVE (Neg); URINE OPIATE SCREEN NEGATIVE (Neg); URINE PHENCYCLIDINE SCREEN NEGATIVE (Neg)
[2019-05-08 16:08] LABS: CLARITY,URINE SLIGHTLY CLOUDY (Clear); COLOR,URINE STRAW (Yellow); GLUCOSE, URINE NEGATIVE (Neg); KETONES,URINE NEGATIVE (Neg); LEUKOCYTE ESTERASE ,URINE SMALL (Neg); NITRITES, URINE NEGATIVE (Neg); OCCULT BLOOD,URINE NEGATIVE (Neg); PH,URINE 6.5 (4.8-8.0); PROTEIN,URINE NEGATIVE (Neg); UROBILINOGEN,URINE 0.2 E.U/dL (0.2-1.0)
[2019-05-08 16:25] LABS: UA COLLECTION TYPE CLN CATCH MIDSTREAM
[2019-05-08 16:29] LABS: BACTERIA,URINE FEW /HPF (Neg); RBC,URINE NONE SEEN /HPF (0-2); SQUAMOUS EPITHELIAL CELL,UR MANY /LPF (FEW)
[2019-05-08] MEDS ORDERED: OXCA300T4 PO (18:40)
[2019-05-08] MEDS ORDERED: OXCA600T5 PO (18:40)
[2019-05-08] MEDS ORDERED: BREX2TAB PO (18:40)
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
[2019-05-08] MEDS ORDERED: LORazepam 1 MG tablet PO PRN (19:40)
[2019-05-08] MEDS: BREXPIPRAZOLE 2 MG PO SCH (20:00)
[2019-05-08] MEDS: olanzapine 10mg tablet PO SCH ×2 (20:43→20:57)
[2019-05-08] MEDS ORDERED: oxcarbazepine 150mg tablet PO SCH (21:00)
--- NOTE | 2019-05-08 21:15 | NUR ---
The patient remains disorganized. She did take her HS medications but refused PRN ativan.
--- NOTE | 2019-05-08 21:16 | NUR ---
Per [facility] the patient's packet is at [facility] psychiatric facility.
--- NOTE | 2019-05-08 23:10 | NUR ---
The patient appears to be asleep at this time.
--- NOTE | 2019-05-08 23:57 | NUR ---
The patient appears to be sleeping
--- NOTE | 2019-05-09 00:48 | NUR ---
The patient appears to be sleeping
--- NOTE | 2019-05-09 03:16 | NUR ---
The appears to be sleeping
--- NOTE | 2019-05-09 03:39 | NUR ---
The patient is awake and behaving bizarrely. She was observed flapping her arms then trying to lift her bed off the floor. She then ran up and down in front of the nursing station but she did accept redirection and is now laying on her bed.
--- NOTE | 2019-05-09 04:39 | NUR ---
The patient appears to be sleeping
--- NOTE | 2019-05-09 05:07 | NUR ---
The patient is sitting on her bed laughing and talking to herself.
[2019-05-09 05:52] VITALS: BP 125/80
--- NOTE | 2019-05-09 06:52 | NUR ---
Patient awake and alert and came up to the nurses station and wanting to use the phone. RN explained that she can't use the phone until 0800. Patient then asked what time [facility] arrives. RN told her that the schedule varies. She yelled 8 oclock! And then walked back to her bed. Continue to monitor.
[2019-05-09] MEDS ORDERED: OLANZapine **IM** 10 mg inj. IM ONE (07:30)
[2019-05-09] MEDS ORDERED: LORazepam 2 mg/ml vial IM ONE (07:30)
--- NOTE | 2019-05-09 07:40 | NUR ---
Patient getting upset over having to remove her own pants. Patient soon calmed down and laying quietly in bed. Continue to monitor.
[2019-05-09] MEDS ORDERED: oxcarbazepine 150mg tablet PO SCH (08:00)
[2019-05-09] MEDS: BREXPIPRAZOLE 2 MG PO SCH (08:00)
--- NOTE | 2019-05-09 08:10 | NUR ---
Patient is psychotic and responding to internal stimuli. Cussing and talking to herself. Patient had a one time dose of Ativan and Zyprexa. Patient agreed to take medication. Continue to monitor.
--- NOTE | 2019-05-09 10:10 | NUR ---
Patient laying in bed but still talking to herself, responding to internal stimuli. No distress observed. Continue to monitor.
--- NOTE | 2019-05-09 10:46 | NUR ---
pt ate all of her breakfast
== END 2019-05-09 11:00 ==
LOC: ER 14:47
DX: F29 Unspecified psychosis not due to a substance or known physiological condition (principal); F32.9 Major depressive disorder, single episode, unspecified; F20.9 Schizophrenia, unspecified; J45.909 Unspecified asthma, uncomplicated; F41.9 Anxiety disorder, unspecified; Z90.49 Acquired absence of other specified parts of digestive tract; Z79.899 Other long term (current) drug therapy; Z88.6 Allergy status to analgesic agent
CPT/HCPCS: 36415; 80053; 80305; 80320; 81001; 81025; 85025; 96372; 99285; J2060; J3490

== ENCOUNTER → 2019-09-19 | Emergency (ER) | payer MEDICARE, MEDICAID ==
[~2019-09-19] VITALS: Ht 160 cm; Wt 111.3 kg
[~2019-09-19] MED LIST changes: +BENZ1TAB7 PO; +HALO100A3 IM; +LORazepam 2 mg/ml vial IM ONE; +NORG1TAB80 PO; +NORGESTIMATE ETHINYL ESTRADIOL PO SCH; -OXCA300T16 PO; +OXCA300T4 PO; +OXCA600T5 PO; +benztropine 1mg tablet PO SCH; +haloperidol decanoate***LONG-ACTING*** 100mg/ml **IM only** inj. IM SCH; +haloperidol lactate 5mg/ml inj IM ONE; +nitrofuran/nitrofuran macrocrysal 100 MG capsule PO SCH; +oxcarbazepine 150mg tablet PO SCH
[2019-09-19 14:18] VITALS: BP 171/100
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
[2019-09-19 14:55] LABS: BASOPHILS # (AUTO) 0.1 X10'3 (0-0.2); BASOPHILS % (AUTO) 0.6 % (0-1); EOSINOPHILS % (AUTO) 0.3 % (0-6); HEMATOCRIT 43.6 % (35.0-45.0); LYMPHOCYTES # (AUTO) 1.9 X10'3 (1.1-4.8); LYMPHOCYTES % (AUTO) 16.7 % (21-51); MEAN CORPUSCULAR HGB CONC 34.5 g/dL (33.0-36.5); MEAN PLATELET VOLUME 9.9 FL (7.4-10.4); MONOCYTES # (AUTO) 0.5 X10'3 (0-0.9); MONOCYTES % (AUTO) 4.4 % (2-12); NEUTROPHILS # (AUTO) 8.9 X10'3 (1.8-7.7); PLATELET COUNT 304 X10'3 (140-440); RED BLOOD COUNT 4.84 X10'6 (4.20-5.60); RED CELL DISTRIBUTION WIDTH 12.6 % (11.5-14.5); WHITE BLOOD COUNT 11.4 X10'3 (4.5-11.0)
--- NOTE | 2019-09-19 15:15 | NUR ---
Patient was removed from restraints. Patient is now calm and cooperative and ambulatory to BR, steady gait. Continue to monitor.
[2019-09-19 15:17] LABS: ALANINE AMINOTRANSFERASE 17 U/L (12-78); ALBUMIN 3.6 G/DL (3.4-5.0); ALBUMIN/GLOBULIN RATIO 0.8 (1.1-1.5); ALKALINE PHOSPHATASE 143 IU/L (46-116); ANION GAP 12 (8-16); ASPARTATE AMINO TRANSFERASE 17 U/L (10-37); BILIRUBIN,TOTAL 0.3 MG/DL (0.1-1.0); BLOOD UREA NITROGEN 2 MG/DL (7-18); BUN/CREATININE RATIO 2.7 (6.6-38.0); CALCIUM 9.2 MG/DL (8.5-10.1); CHLORIDE 100 MMOL/L (99-107); CREATININE 0.74 MG/DL (0.40-0.90); GLUCOSE 102 MG/DL (70-104); POTASSIUM 4.2 MMOL/L (3.5-5.1); SODIUM 137 MMOL/L (135-145); TOTAL CARBON DIOXIDE 25.2 MMOL/L (24-32); TOTAL PROTEIN 8.1 G/DL (6.4-8.2); eGFR 88 ML/MIN
[2019-09-19 15:26] LABS: ETHANOL < 0.010 GM/DL (0.0-0.010)
[2019-09-19 15:46] LABS: CLARITY,URINE CLOUDY (Clear); COLOR,URINE YELLOW (Yellow); GLUCOSE, URINE NEGATIVE (Neg); KETONES,URINE 15 mg/dl (Neg); LEUKOCYTE ESTERASE ,URINE TRACE (Neg); NITRITES, URINE NEGATIVE (Neg); OCCULT BLOOD,URINE NEGATIVE (Neg); PH,URINE 6.5 (4.8-8.0); PROTEIN,URINE NEGATIVE (Neg); UROBILINOGEN,URINE 0.2 E.U/dL (0.2-1.0)
[2019-09-19 15:47] LABS: UA COLLECTION TYPE CLN CATCH MIDSTREAM; URINE HCG NEGATIVE (NEG)
[2019-09-19 15:52] LABS: MUCUS STRANDS MANY /LPF (Neg); SQUAMOUS EPITHELIAL CELL,UR MANY /LPF (FEW)
[2019-09-19 15:53] LABS: BACTERIA,URINE 2+ /HPF (Neg); RBC,URINE 0-2 /HPF (0-2)
[2019-09-19 16:03] LABS: URINE AMPHETAMINE SCREEN NEGATIVE (Neg); URINE BARBITUATE SCREEN NEGATIVE (Neg); URINE BENZODIAZEPINES SCREEN NEGATIVE (Neg); URINE CANNABINOID SCREEN NEGATIVE (Neg); URINE COCAINE SCREEN NEGATIVE (Neg); URINE METHADONE SCREEN NEGATIVE (Neg); URINE OPIATE SCREEN NEGATIVE (Neg); URINE PHENCYCLIDINE SCREEN NEGATIVE (Neg)
--- NOTE | 2019-09-19 16:26 | NUR ---
Patient laying on left side under blanket and appears to be sleeping. No distress observed. Continue to monitor.
[2019-09-19 17:36] LABS: ACETAMINOPHEN < 2.0 UG/ML (10-30)
--- NOTE | 2019-09-19 19:46 | NUR ---
pt refused assessment
--- NOTE | 2019-09-19 20:52 | NUR ---
Pharmacy note regarding pt's haldol deconoate. Per pharmacist, pt will not need haldol deconoate as she was given a shot on 09/18 and schedule is every 2 weeks.
--- NOTE | 2019-09-19 22:07 | NUR ---
pt refused pm meds and most of assessment. pt is now sleeping, no s/s of distress noted.
--- NOTE | 2019-09-19 23:41 | NUR ---
pt is sleeping, no s/s of distress noted. will continue to monitor.
== END | disposition home or self-care (01) ==
LOC: ER 14:16 → UNDOADMIN 22:18 → ADULT MH 22:18 → ED HOLD 22:46
DX: F29 Unspecified psychosis not due to a substance or known physiological condition (principal); J45.909 Unspecified asthma, uncomplicated; F20.9 Schizophrenia, unspecified; F41.9 Anxiety disorder, unspecified; Z90.49 Acquired absence of other specified parts of digestive tract; Z88.8 Allergy status to other drugs, medicaments and biological substances; Z79.899 Other long term (current) drug therapy
CPT/HCPCS: 36415; 80053; 80305; 80320; 80329; 81001; 81025; 84443; 85025; 96372; 99285; J1630; J2060; G0378